=== PATIENT | female | born 1960 | race Hispanic/Latino ===

== ENCOUNTER 2017-05-14 13:56 | Emergency (ER) | payer OTHER ==
[2017-05-14 14:32] LABS: Basophils % (Auto) 0.9 % (0.0-1.8); Eosinophils % (Auto) 1.6 % (0.0-4.3); Hematocrit 36.3 % (30.3-42.9); Hemoglobin 12.5 gm/dl (10.1-14.3); Mean Corpuscular HGB Conc 35 % (30-34); Mean Corpuscular Hemoglobin 34 pg (28-32); Mean Corpuscular Volume 100 fl (79-97); Platelet Count 201 K/mm3 (140-440); Red Blood Count 3.64 M/mm3 (3.65-5.03); Red Cell Distribution Width 12.3 % (13.2-15.2); White Blood Count 4.8 K/mm3 (4.5-11.0)
[2017-05-14 14:46] LABS: Alanine Aminotransferase 10 units/L (7-56); Albumin 3.9 g/dL (3.9-5); Albumin/Globulin Ratio 1.6 %; Alkaline Phosphatase 54 units/L (35-129); Anion Gap 18 mmol/L; BUN/Creatinine Ratio 11.11; Blood Urea Nitrogen 10 mg/dL (7-17); Carbon Dioxide 26 mmol/L (22-30); Chloride 94.4 mmol/L (98-107); Glucose 70 mg/dL (65-100); Potassium 4.2 mmol/L (3.6-5.0); Sodium 134 mmol/L (137-145); Total Protein 6.4 g/dL (6.3-8.2)
[2017-05-14] MEDS ORDERED: NACL 0.9% 1000 ML 1,000 ML IV ONE (16:16)
--- NOTE | 2017-05-14 17:55 | Emergency Department Report ---
HPI - General Chief Complaint: Vaginal Bleeding Time Seen by Provider: 05/14/17 15:25 - HPI HPI: This is a 56-year-old female presents to the emergency department from home, driven in by her , after she spent the day feeling very faint and/or dizzy as if she was going to pass out, although she never did. She denies any chest pain, headache, vision change, slurred speech, shortness of breath or any neurological deficits. The patient has also been having some lower abdominal cramping and despite the fact that she began menopause 2 years ago she has been having a significant amount of vaginal bleeding for the past 22 days. Her primary care physician is Dr. 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 She has a past medical history of hypothyroidism. No recent travel or sick contacts at home. ED Past Medical Hx - Past Medical History Previous Medical History?: Yes Additional medical history: hypothyroid - Surgical History Past Surgical History?: Yes Additional Surgical History: sinus surgery - Social History Smoking Status: Never Smoker Substance Use Type: None ED Review of Systems ROS: Stated complaint: Dizziness Other details as noted in HPI Comment: All other systems reviewed and negative Constitutional: denies: chills, fever Eyes: denies: eye pain, eye discharge, vision change ENT: denies: ear pain, throat pain Respiratory: denies: cough, shortness of breath, wheezing Cardiovascular: denies: chest pain, palpitations Gastrointestinal: abdominal pain (lower abd cramping). denies: vomiting Genitourinary: other (vaginal bleeding). denies: dysuria, discharge Musculoskeletal: denies: back pain, joint swelling, arthralgia Skin: denies: rash, lesions Neurological: other (lightheaded, dizzy). denies: headache, weakness, paresthesias Physical Exam - Physical Exam Vital Signs: Vital Signs 05/14/17 14:00 Temperature 97 F L Pulse Rate 84 Respiratory 18 Rate Blood Pressure 153/95 O2 Sat by Pulse 100 Oximetry Physical Exam: GENERAL: The patient is well-developed well-nourished. HENT: Normocephalic. Atraumatic. Patient has moist mucous membranes. EYES: Extraocular motions are intact. Pupils equal reactive to light bilaterally. No nystagmus. NECK: Supple. Trachea is midline. CHEST/LUNGS: Clear to auscultation. There is no respiratory distress noted. HEART/CARDIOVASCULAR: Regular. There is no tachycardia. There is no gallop rub or murmur. ABDOMEN: Abdomen is soft, nontender. Patient has normal bowel sounds. There is no abdominal distention. SKIN: Skin is warm and dry. NEURO: The patient is awake, alert, and oriented. The patient is cooperative. The patient has no focal neurologic deficits. The patient has normal speech. Cranial nerves II through XII grossly intact. No pronator drift. No dysmetria. MUSCULOSKELETAL: There is no tenderness or deformity. There is no limitation range of motion. There is no evidence of acute injury. ED Course Vital Signs 05/14/17 14:00 Temperature 97 F L Pulse Rate 84 Respiratory 18 Rate Blood Pressure 153/95 O2 Sat by Pulse 100 Oximetry ED Medical Decision Making - Lab Data Result diagrams: 05/14/17 14:11 05/14/17 14:11 - EKG Data -: EKG Interpreted by Id EKG shows normal: sinus rhythm, axis, intervals, QRS complexes (right bundle branch block), ST-T waves Rate: normal - EKG Data When compared to previous EKG there are: previous EKG unavailable Interpretation: other (sinus rhythm, right bundle branch block) - Radiology Data Radiology results: report reviewed Transvaginal/pelvic ultrasound shows uterine fibroids. Radiologist reads that there is a thickened endometrium and a postmenopausal female and may require endometrial biopsy. - Medical Decision Making 56-year-old female presents the emergency department with some nonspecific lightheadedness and/or dizziness as well as a 22 day history of some significant vaginal bleeding and abdominal cramping. Vital signs stable throughout her ED course. She does not have any focal, motor or sensory deficits in her cranial nerves are intact. EKG does not show any signs of ST elevation [place], ischemia or dysrhythmia. Her labs are mostly unremarkable including a normal hemoglobin level. Normal thyroid function. Ultrasound shows uterine fibroids which may be the source of the bleeding and her cramping but most likely not of the dizziness. She was given some IV fluid resuscitation. Patient is feeling better. Seen and ventilatory the emergency department and appears stable on doing so. She has a follow-up appointment with her primary care physician as well as a new SVP GROUP DIRECTOR. She will return to the ER with any worsening of her symptoms or any acute distress. - Differential Diagnosis fibroids, malignancy, hypothyroidism, orthostatic hypotension, vasovagal Critical Care Time: No Critical care attestation.: If time is entered above; I have spent that time in minutes in the direct care of this critically ill patient, excluding procedure time. ED Disposition Clinical Impression: Dizziness, Lightheaded, Vaginal bleeding Fibroids Qualifiers: Uterine leiomyoma location: unspecified location Qualified Code(s): D25.9 - Leiomyoma of uterus, unspecified Disposition: TO HOME OR SELFCARE Is pt being admited?: No Condition: Stable Instructions: Bleeding (ED), Uterine Fibroids (ED), Lightheadedness (ED), Dizziness (ED), Near Syncope (ED) Additional Instructions: Please follow-up with your primary care physician as well as your scheduled appointment with your SVP GROUP DIRECTOR. Return to the emergency Department with any worsening of your symptoms or any acute distress. Referrals: PRIMARY CARE, [Primary Care Provider] - [facility] Time of Disposition: 19:19
[2017-05-14 18:15] LABS: Bilirubin,Urine NEG (Negative); Blood,Urine LG (Negative); Ketones,Urine NEG (Negative); Leukocyte Esterase,Urine NEG (Negative); Nitrite,Urine NEG (Negative); Urobilinogen,Urine < 2.0 mg/dL (<2.0)
--- NOTE | 2017-05-14 18:49 | Ultrasound Report ---
FINAL REPORT EXAM: US PELVIS DUPLEX DOPPLER COMP HISTORY: pelvic pain, bleeding TECHNIQUE: Grayscale and color and spectral Doppler ultrasound imaging of the pelvis was performed transabdominally and transvaginally. PRIORS: None. FINDINGS: Uterus: A uterine fibroid is seen within the fundus measuring 2.0 x 1.7 x 1.6 centimeters. A 2nd fibroid is seen within the right aspect of the uterus measuring 3.2 x 3.1 x 2.7 centimeters. The uterus measures 11.0 x 7.8 x 6.7 centimeters. Endometrium: The endometrium is normal in echogenicity. The endometrium measures 13.2 millimeters. Ovaries: The ovaries are normal in echogenicity without cyst or mass. Normal arterial waveforms were seen to the ovaries. Normal flow is seen to the ovaries. The right ovary measures 2.9 x 1.4 x 2.0 centimeters. The left ovary measures 2.6 x 1.3 x 1.3 centimeters. Free fluid: Small amount of physiologic free fluid is seen within the pelvis. IMPRESSION: 1. Uterine fibroids. 2. Thickened endometrium for a postmenopausal patient. Recommend further evaluation with endometrial biopsy.
[2017-05-14 19:37] VITALS: BP 126/71
== END 2017-05-14 19:38 | disposition home or self-care (01) ==
LOC: ED 13:56
DX: D25.9 Leiomyoma of uterus, unspecified (principal); N93.9 Abnormal uterine and vaginal bleeding, unspecified
CPT/HCPCS: 36415; 76830; 80053; 81001; 84443; 84702; 85025; 86850; 86900; 86901; 93005; 93010; 93975; 96360; 99284; J7030

== ENCOUNTER 2018-05-16 09:50 | Emergency (ER) | payer OTHER ==
[2018-05-16] MEDS ORDERED: NACL 0.9% 1000 ML 1,000 ML IV ONE (11:21)
[2018-05-16] MEDS ORDERED: TORADOL IV ONE (11:22)
--- NOTE | 2018-05-16 11:28 | Emergency Department Report ---
ED Headache HPI - General Chief Complaint: Headache Stated Complaint: HEAD/NECK PAIN Time Seen by Provider: 05/16/18 11:04 - History of Present Illness Initial Comments: This is a 57-year-old female nontoxic, well nourished in appearance, no acute signs of distress presents to the ED with c/o of acute on chronic intermittent dizziness and headache. Patient she was seen by her primary care doctor and has been sent to the ER due to syncopal episode that occurred 2 days ago. Patient stated that while she woke up from her bed and middle night she became dizzy and lost consciousness. She denies any other trauma. Patient describes headache as diffuse with level of 3 out of 10. Patient denies thunderclap headache. Patient denies any radiation of pain. Patient denies any neck trauma or pain. Patient denies any visual changes. Patient denies worse headache. Patient stated that darkness makes headache better and bright lights make the headache worse. Patient denies any numbness, tingling, fever, chills, nausea, vomiting, chest pain, shortness of breath, stiff neck. Patient denies any radiation of pain. Patient denies any allergies. Past medical history includes migraine headaches and sinusitis and hypothyroidism. Timing/Duration: episodic Quality: mild, achy Head Injury Location: other (diffuse) Recent Head Trauma: no recent headache/trauma, frequent headaches Associated Symptoms: loss of consciousness. denies: confusion, fatigue, facial pain, fever/chills, flushing, nausea/vomiting, nasal congestion, nasal drainage , numbness in legs/feet, rash, seizures, sinus infection, stiff neck, vision changes, weakness Allergies/Adverse Reactions: Allergies No Known Allergies Allergy (Verified 05/16/18 10:16) Home Medications: Ambulatory Orders Acetaminophen/Codeine [Tylenol /Codeine # 3 tab] 1 tab PO Q6H PRN #12 tab Amoxicillin/K Clav Tab [Augmentin 875 mg] 1 tab PO Q12HR #20 tab 05/16/18 Ibuprofen [Motrin] 600 mg PO Q8H PRN #30 tablet 05/16/18 ED Review of Systems ROS: Stated complaint: HEAD/NECK PAIN Other details as noted in HPI Constitutional: denies: chills, fever Eyes: denies: eye pain, eye discharge, vision change ENT: denies: ear pain, throat pain Respiratory: denies: cough, shortness of breath, wheezing Cardiovascular: denies: chest pain, palpitations Endocrine: no symptoms reported Gastrointestinal: denies: abdominal pain, nausea, diarrhea Genitourinary: denies: urgency, dysuria, discharge Musculoskeletal: denies: back pain, joint swelling, arthralgia Skin: denies: rash, lesions Neurological: headache. denies: weakness, paresthesias Psychiatric: denies: anxiety, depression Hematological/Lymphatic: denies: easy bleeding, easy bruising ED Past Medical Hx - Past Medical History Additional medical history: hypothyroid - Surgical History Additional Surgical History: sinus surgery - Social History Smoking Status: Never Smoker Substance Use Type: None - Medications Home Medications: Home Medications Medication Instructions Recorded Confirmed Last Taken Type Acetaminophen/Codeine [Tylenol 1 tab PO Q6H PRN #12 tab 05/16/18 Unknown Rx /Codeine # 3 tab] Amoxicillin/K Clav Tab [Augmentin 1 tab PO Q12HR #20 tab 05/16/18 Unknown Rx 875 mg] Ibuprofen [Motrin] 600 mg PO Q8H PRN #30 tablet 05/16/18 Unknown Rx ED Physical Exam - General Limitations: No Limitations General appearance: alert, in no apparent distress - Head Head exam: Present: atraumatic, normocephalic - Eye Eye exam: Present: normal appearance, PERRL, EOMI Pupils: Present: normal accommodation - ENT ENT exam: Present: normal exam, normal orophraynx, mucous membranes moist, TM's normal bilaterally - Neck Neck exam: Present: normal inspection, full ROM. Absent: tenderness, meningismus, lymphadenopathy - Respiratory Respiratory exam: Present: normal lung sounds bilaterally. Absent: respiratory distress, wheezes, rales, rhonchi, stridor, chest wall tenderness, accessory muscle use, decreased breath sounds, prolonged expiratory - Cardiovascular Cardiovascular Exam: Present: regular rate, normal rhythm, normal heart sounds. Absent: bradycardia, tachycardia, irregular rhythm, systolic murmur, diastolic murmur, rubs, gallop - GI/Abdominal GI/Abdominal exam: Present: soft, normal bowel sounds. Absent: distended, tenderness, guarding, rebound, rigid, diminished bowel sounds - Extremities Exam Extremities exam: Present: normal inspection, full ROM, normal capillary refill. Absent: tenderness - Back Exam Back exam: Present: normal inspection, full ROM. Absent: tenderness, CVA tenderness (R), CVA tenderness (L), muscle spasm, paraspinal tenderness, vertebral tenderness, rash noted - Neurological Exam Neurological exam: Present: alert, oriented X3, CN II-XII intact, normal gait - Expanded Neurological Exam Expanded Patient oriented to: Present: person, place, time Cranial nerves: EOM's Intact: Normal, Facial Sensation: Normal Cerebellar function: Finger to Nose: Normal Upper motor neuron: Pronator Drift: Normal, Sensory Extinction: Normal Sensory exam: Upper Extremity Light Touch: Normal, Upper Extremity Pin Prick: Normal, Upper Extremity Temperature: Normal, UE 2 Point Discrimination: Normal, Lower Extremity Light Touch: Normal, Lower Extremity Pin Prick: Normal, Lower Extremity Temperature: Normal, LE 2 Point Discrimination: Normal Motor strength exam: RUE: 5, LUE: 5, RLE: 5, LLE: 5 Best Eye Response ([place]): (4) open spontaneously Best Motor Response ([place]): (6) obeys commands Best Verbal Response ([place]): (5) oriented [place] Total: 15 - Psychiatric Psychiatric exam: Present: normal affect, normal mood - Skin Skin exam: Present: warm, dry, intact, normal color. Absent: rash ED Course Vital Signs 05/16/18 05/16/18 05/16/18 10:16 11:28 11:45 Temperature 97.9 F Pulse Rate 69 Pulse Rate [ 68 Sitting] Pulse Rate [ 78 Standing] Respiratory 18 16 Rate Blood Pressure 144/89 Blood Pressure 146/97 [Sitting] Blood Pressure 157/96 [Standing] O2 Sat by Pulse 100 Oximetry 05/16/18 11:47 Temperature Pulse Rate Pulse Rate [ Sitting] Pulse Rate [ Standing] Respiratory 16 Rate Blood Pressure Blood Pressure [Sitting] Blood Pressure [Standing] O2 Sat by Pulse Oximetry - Reevaluation(s) Reevaluation #1: 05/16/18 11:35 Patient is speaking in full sentences with no signs of distress noted. ED Medical Decision Making - Lab Data Result diagrams: 05/16/18 11:28 05/16/18 11:28 - Medical Decision Making This is a 57-year-old female that presents with headache. Patient is stable and was examined by me. Patient is neurologically stable. Orthostatic vital signs within normal limits. There is no stiff neck or neck pain. Vital signs are stable. Patient is afebrile. EKG normal sinus rhythm with no ST abnormalities. Patient received Toradol, and 1 L of normal saline which the patient stated that headache has subsided and resolved. CT scan of head and obtain dictated by the radiologist. Patient notified of the report with no questions or the patient. Patient is discharged with Augmentin and Motrin. Patient was referred to Follow-up with a primary care/neurologist doctor in 3-5 days or if symptoms worsen and continue return to emergency room as soon as possible. At time of discharge, the patient does not seem toxic or ill in appearance. No acute signs of distress noted. Patient agrees to discharge treatment plan of care. No further questions noted by the patient. Critical care attestation.: If time is entered above; I have spent that time in minutes in the direct care of this critically ill patient, excluding procedure time. ED Disposition Clinical Impression: Dizziness Headache Qualifiers: Headache type: unspecified Headache chronicity pattern: acute headache Intractability: not intractable Qualified Code(s): R51 - Headache Syncope Qualifiers: Syncope type: unspecified Qualified Code(s): R55 - Syncope and collapse Sinusitis Qualifiers: Sinusitis location: frontal Chronicity: unspecified Qualified Code(s): J32.1 - Chronic frontal sinusitis Disposition: DC-01 TO HOME OR SELFCARE Is pt being admited?: No Does the pt Need Aspirin: No Condition: Stable Instructions: Sinusitis (ED), Syncope (ED), Acute Headache (ED) Additional Instructions: Follow-up with a primary care/neurologist doctor in 3-5 days or if symptoms worsen and continue return to emergency room as soon as possible. Prescriptions: Acetaminophen/Codeine [Tylenol /Codeine # 3 tab] 1 tab PO Q6H PRN #12 tab PRN Reason: Pain , Severe (7-10) Amoxicillin/K Clav Tab [Augmentin 875 mg] 1 tab PO Q12HR #20 tab Ibuprofen [Motrin] 600 mg PO Q8H PRN #30 tablet PRN Reason: Pain Referrals: MARIOLA MERCEDES MD [Primary Care Provider] - 3-5 Days PRIMARY CAREMD [Referring] - 3-5 Days NATA GRIMES MD [Staff Physician] - 3-5 Days [facility] [Outside] - 3-5 Days [facility] [Outside] - 3-5 Days Forms: Work/School Release Form(ED)
[2018-05-16 11:30] VITALS: BP 146/97
[2018-05-16 11:44] LABS: Basophils % (Auto) 0.7 % (0.0-1.8); Eosinophils # (Auto) 0.1 K/mm3 (0.0-0.4); Eosinophils % (Auto) 2.6 % (0.0-4.3); Hematocrit 39.2 % (30.3-42.9); Hemoglobin 13.2 gm/dl (10.1-14.3); Lymphocytes # (Auto) 1.7 K/mm3 (1.2-5.4); Lymphocytes % (Auto) 43.9 % (13.4-35.0); Mean Corpuscular HGB Conc 34 % (30-34); Mean Corpuscular Hemoglobin 33 pg (28-32); Mean Corpuscular Volume 99 fl (79-97); Monocytes # (Auto) 0.3 K/mm3 (0.0-0.8); Monocytes % (Auto) 7.2 % (0.0-7.3); Platelet Count 195 K/mm3 (140-440); Red Blood Count 3.96 M/mm3 (3.65-5.03); Red Cell Distribution Width 11.8 % (13.2-15.2)
[2018-05-16 11:59] LABS: BUN/Creatinine Ratio 10; Blood Urea Nitrogen 7 mg/dL (7-17); Calcium 8.8 mg/dL (8.4-10.2); Hemolysis Index 2
--- NOTE | 2018-05-16 12:42 | Cat Scan Report ---
CT HEAD WITHOUT CONTRAST: HISTORY: Headache, dizziness. TECHNIQUE: Sequential 2.5mm CT images. COMPARISON: none. FINDINGS: Cerebral Parenchyma: Within normal limits. Cerebellum: Within normal limits. Brainstem: Within normal limits. Ventricles: Normal. Sella: Normal. Extra-axial spaces: Normal. Basal Cisterns: Normal. Intracranial Hemorrhage: None. Midline Shift: None. Calvarium: Normal. Sinuses: A small fluid level is identified in the right maxillary sinus. The remaining visualized sinuses are adequately aerated. Mastoid Air Cells: Normal. Visualized Orbits: Normal. IMPRESSION: Cranial CT scan within normal limits. Small fluid level in the right sphenoid sinus which could represent sinusitis. Correlate with the patient.
== END 2018-05-16 13:31 | disposition home or self-care (01) ==
LOC: ED 09:50
DX: J32.1 Chronic frontal sinusitis (principal); R55 Syncope and collapse; R42 Dizziness and giddiness; R51 Headache; E03.9 Hypothyroidism, unspecified
CPT/HCPCS: 36415; 70450; 80048; 84436; 84443; 84481; 85025; 93005; 93010; 96361; 96374; 99284; J1885; J7030